=== PATIENT | female | born 1995 | race Caucasian/White ===

== ENCOUNTER 2022-09-05 11:11 | Inpatient (IN) ==
[2022-09-05] MEDS ORDERED: LIDOCAINE 1% LOCAL 20 ML VIAL INFIL PRN (12:00)
[2022-09-05] MEDS ORDERED: OXYTOCIN 30 UNITS/500 ML BAG IV PRN ×2 (12:00→16:14)
--- NOTE | 2022-09-05 12:09 | History & Physical Report ---
Date of Service September 05, 2022 Assessment & Plan (1) Normal labor: (2) Elevated blood pressure affecting , antepartum: Plan 26 yo G1 at 39 4/7 wga presents in labor Mild BPs noted, initial severe but mild repeat and denies s/s. Will get labs to r/o PET, pt is very uncomfortable as well Fetus cat 1 Labor - augment prn GBS neg epidural PRN History of Present Illness Chief Complaint: ctx Primary Care Provider: Arelis Nichole PA-C 26 yo G1 at 39 4/7 wga presents w/ ctx increasing in frequency and intensity. +FM; denies LOF, VB. Denies HUGHES, vision change, CP, SOB, RUQ/epigastric pain PNI: None Past diversified crops farmer Hx: G1 q35d cycles 12/2021 neg cotest denies hx STIs Allergies Allergy/AdvReac Type Severity Reaction Status Date / Time No Known Allergies Allergy Verified 09/05/22 11:24 Home Medications Medication Instructions Recorded Confirmed Type prenat.vits,kamille,moe-hbcy-juchv 1 tab PO DAILY 01/21/22 09/05/22 History breast pump #1 ea 07/02/22 09/03/22 Rx ferrous sulfate 325 mg (65 mg 325 mg PO DAILY 07/02/22 09/05/22 History iron) tablet psyllium 1 packet PO 1XD 09/05/22 09/05/22 History Patient History Medical History (Updated 09/05/22 @ 12:07 by Ibeth Nunes MD) Anxiety Depression with anxiety History of chicken pox Surgical History H/O wisdom tooth extraction S/P wisdom tooth extraction Status post surgery Dental Implants Family History Father Diabetes Hypertension Mother Anxiety Father Diabetes Kidney stone Mother Thyroid disease Denies family history of Ovarian cancer Breast cancer Colorectal cancer Social History (System 01/28/22 @ 10:53 by Joya Pal) Smoking Status: Never smoker Hx Alcohol Use: No Hx Substance Use: No Preferred Language: Dutch Communication Ability: Effective 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 Beliefs That Will Affect Care: None marital status: marital status details: Steve (28) [phone] Current Living Situation: Spouse Current Living Situation Comment: lives with spouse, dog current occupational status: employed 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 Other Information That Helps Us Care for You: No Feels Safe at Home: Yes Safety Concerns: Feels Safe At This Time Seatbelt Use: always Assistive Devices: None Physical Exam Genitourinary: OB Exam Abdomen: + vertex and + estimated weight (7-8) Manual OB Exam: + cervical dilation 3 cm, + cervical effacement and + station -2 OB Exam Monitor Tracing: + external FHT monitor used, + external uterine monitor used (q4-6) and + category I (130/mod/+accel/-decel) Results & Data Vital Signs (Past 12 Hours) Vital Signs Temp Pulse Resp BP 09/05/22 11:56 80 09/05/22 11:56 144/93 H 09/05/22 11:40 90 09/05/22 11:40 138/95 09/05/22 11:23 20 09/05/22 11:23 98.1 F 20 09/05/22 11:22 73 163/86 H Laboratory Results OB Labs: Blood Type O Positive 01/27/22 Antibody Screen NEGATIVE 01/27/22 Hemoglobin 9.9 g/dl (12.0-16.0) L 06/18/22 Hematocrit 29.4 % (34.1-44.9) L 06/18/22 Mean Corpuscular Volume 89.8 fL (80.0-100.0) 01/27/22 Platelet Count 183 K/uL (130-400) 01/27/22 Rubella IgG Antibody Immune (Immune) 01/27/22 Rapid Plasma Reagin Nonreactive (Nonreactive) 01/27/22 Hepatitis B Surface Antigen. NON-REACTIVE (NON-REACTIVE) 01/27/22 Hepatitis C Antibody (EIA) NON-REACTIVE (NON-REACTIVE) 01/27/22 HIV (1&2) Ag and Ab Confirmation NON-REACTIVE (NON-REACTIVE) 01/27/22 Glucose 1 Hour 50 gm Load 111 mg/dl (70-130) 06/18/22 OB Optional Labs: Chlamydia trachomatis RNA NOT DETECTED (NOT DETECTED) 01/27/22 Neisseria gonorrhoeae RNA NOT DETECTED (NOT DETECTED) 01/27/22 Labs Reviewed: Declines cf/sma/cfdna--mln Diagnostic Findings post plac Coding Level of Care Code None Diagnoses Normal labor O80; Z37.9 Elevated blood pressure affecting , antepartum O16.9
[2022-09-05] MEDS: LACTATED RINGER'S 1,000 ML IV PRN ×3 (12:19→18:57)
[2022-09-05 12:45] LABS: Hematocrit (blood only) 36.8 % (37.0-47.0); Hemoglobin 12.4 g/dl (12.0-16.0); Mean Corpuscular Hemoglobin 30.9 pg (25.0-34.0); Mean Corpuscular Hgb Conc 33.7 g/dL (32.0-36.0); Mean Corpuscular Volume 91.8 fL (80.0-100.0); Mean Platelet Volume 13.4 fL (9.4-12.4); Platelet Count 102 K/uL (130-400); RDW Coefficient of Variation 13.7 % (11.5-14.5); RDW Standard Deviation 46.7 fL (36.4-46.3); Red Blood Count 4.01 M/uL (4.20-5.40); White Blood Count 9.91 K/ul (4.8-10.8)
[2022-09-05] MEDS ORDERED: ePHEDrine sulfate 50 MG/ML AMP ONE (12:49)
[2022-09-05] MEDS ORDERED: fentaNYL 2MCG/ML ROPIVACAINE 1.25MG/ML 100 ML BAG EPI ONE (12:50)
[2022-09-05] MEDS ORDERED: LIDOCAINE 2%/EPINEPHRINE 1:200,000 20 ML PF ONE (12:50)
[2022-09-05] MEDS ORDERED: SODIUM CHLORIDE 0.9% PF INJ 10 ML VIAL ONE (12:50)
[2022-09-05] MEDS ORDERED: BUPIVACAINE 0.25% PF 30 ML VIAL ONE (12:50)
[2022-09-05] MEDS ORDERED: fentaNYL citrate PF 100 MCG/2 ML VIAL ONE (12:50)
[2022-09-05 12:57] LABS: Albumin Globulin Ratio 1.2 (0.9-2); Albumin Level 3.3 gm/dl (3.4-5.0); BUN Creatinine Ratio 18.3 (10-20); Bilirubin,Total 0.3 mg/dl (0.2-1.0); Calcium 8.4 mg/dl (8.6-10.3); Creatinine Clr Calc Pharmacy 164.4 ml/min; Est GFR (African American) 143.8 ml/min; Globulin 2.7 gm/dl (2.5-4.0); Potassium 4.4 mmol/L (3.5-5.1)
--- NOTE | 2022-09-05 13:26 | Anesthesiology Consultation ---
Date of Service September 05, 2022 Assessment & Plan Chart Review Chart Review: Acceptable Risk for Surgery, Patient NOT seen in Pre Admission Testing and Acceptable Risk for Labor Epidural Consults Requested none ASA ASA2 Proposed Anesthesia Anesthesia Type: Labor Epidural and CSE History Height/Weight Height: 5 ft 6 in Weight: 97.522 kg Allergies Allergy/AdvReac Type Severity Reaction Status Date / Time No Known Allergies Allergy Verified 09/05/22 11:24 Medications Home Medications Medication Instructions Recorded Confirmed Last Taken prenat.vits,kamille,iwc-lqzw-genda 1 tab PO DAILY 01/21/22 09/05/22 09/04/22 18:00 breast pump #1 ea 07/02/22 09/03/22 Unknown ferrous sulfate 325 mg (65 mg 325 mg PO DAILY 07/02/22 09/05/22 09/05/22 05:00 iron) tablet psyllium 1 packet PO 1XD 09/05/22 09/05/22 09/05/22 05:00 Active Medications Generic Name Dose Route Start Last Admin Trade Name Freq PRN Reason Stop Dose Admin Lactated Ringer's 1,000 mls @ 125 mls/hr 09/05/22 12:00 09/05/22 13:21 Lr IV 09/07/22 11:59 125 mls/hr .Q8H PRN Administration L&D Protocol Protocol Past Medical History Medical History Anxiety Depression with anxiety History of chicken pox Exercise / Class Metabolic Activity II 4-5 Yardwork/Stairs/Walk up hill Past Family History Family History Father Diabetes Hypertension Mother Anxiety Father Diabetes Kidney stone Mother Thyroid disease Denies family history of Ovarian cancer Breast cancer Colorectal cancer Past Surgical History Surgical History H/O wisdom tooth extraction S/P wisdom tooth extraction Status post surgery Dental Implants Past Anesthesia History No Hx of Anesthesia Complications and No Family Hx of Anesthesia Complications History of PONV No Hx of PONV and No Hx of Motion Sickness Social History Smoking Status: Never smoker Hx Alcohol Use: No Hx Substance Use: No Physical Exam Vital Signs Last Vital Signs Temp 36.8 C 09/05/22 13:16 Pulse 72 04/08/23 13:20 Resp 20 09/05/22 13:16 BP 140/90 09/05/22 13:16 Pulse Ox 97 09/05/22 13:20 Testing Laboratory Results 09/05/22 12:10 09/05/22 12:10
[2022-09-05 13:53] LABS: Creatinine Urine Random 116.5 mg/dl; Protein Creatinine Ratio Urine 2.1 (0-0.2); Total Protein Urine Random 244.8 mg/dl (0-11.9)
--- NOTE | 2022-09-05 14:22 | Communication Note ---
Date of Service: September 05, 2022 Multiple attempts @ epidural placement ; unable to enter epidural space 2ndary to bone; difficulty w/ delineation of vertebral interspaces. Back up physician ,Dr Foss called and will be coming in.
[2022-09-05] MEDS ORDERED: PROMETHAZINE HCL 25 MG in SODIUM CHLORIDE 0.9% 50 ML IV PRN (14:54)
[2022-09-05] MEDS ORDERED: ePHEDrine sulfate 50 MG/ML AMP IV PRN (14:54)
[2022-09-05] MEDS ORDERED: NALOXONE HCL 1 MG in SODIUM CHLORIDE 0.9% 1000ML 1,000 ML IV PRN (14:54)
[2022-09-05] MEDS ORDERED: fentaNYL 2MCG/ML ROPIVACAINE 1.25MG/ML 100 ML BAG EPI PRN (14:54)
[2022-09-05] MEDS ORDERED: NALOXONE HCL 0.4 MG/1 ML VIAL/CARP IV PRN (14:54)
[2022-09-05] MEDS ORDERED: NALBUPHINE HCL INJ 10 MG/ML AMP IV PRN (14:54)
[2022-09-05] MEDS ORDERED: ONDANSETRON INJ 2 MG/ML 2 ML VIAL IV PRN (14:54)
[2022-09-05] MEDS ORDERED: diphenhydrAMINE 50 MG/ML VIAL IV PRN (14:54)
--- NOTE | 2022-09-05 16:14 | Labor Progress Brief Note ---
Date of Service September 05, 2022 Subjective Comfortable w/ epidural Assessment & Plan (1) Normal labor: (2) Elevated blood pressure affecting , antepartum: Plan 26 yo G1 at 39 4/7 wga presents in labor VSS - BPs initially remained mild range but then improved after epidural. Labs showed plt 102, LFTs and cr wnl, UPC 2. BPs did not remain elevated >4hrs apart so has not met criteria for PIH at this point but will need to monitor closely if begin to elevate again as would meet criteria then. Pt aware Fetus cat 1 Labor - some progress noted, now s/p arom. Will see if helps, pit if needed GBS neg epidural in place Admission and Anticipated Discharge Date Admission Date: September 05, 2022 Physical Exam Genitourinary: Manual OB Exam: + cervical dilation 4 cm, + cervical effacement, + station -2 and + amniotic fluid (arom) clear OB Exam Monitor Tracing: + external FHT monitor used, + external uterine monitor used (irreg, sometimes q2-3, sometimes q9) and + category I (130/mod/+accel/-decel) Results & Data Vital Signs (Past 12 Hours) Vital Signs Temp Pulse Resp BP Pulse Ox 09/05/22 16:10 96 09/05/22 16:10 97 H 09/05/22 16:05 96 09/05/22 16:05 95 H 09/05/22 16:05 105/62 09/05/22 16:00 93 09/05/22 16:00 71 09/05/22 15:00 98.1 F 09/05/22 16:00 20 09/05/22 16:00 20 09/05/22 15:55 94 09/05/22 15:55 65 09/05/22 15:52 66 09/05/22 15:52 104/56 L 09/05/22 15:50 94 09/05/22 15:50 72 09/05/22 15:45 94 09/05/22 15:45 81 09/05/22 15:46 68 09/05/22 15:46 118/67 09/05/22 15:40 97 09/05/22 15:40 124 H 09/05/22 15:35 89 L 09/05/22 15:35 74 09/05/22 15:35 122/73 09/05/22 15:32 70 09/05/22 15:32 77/44 L 09/05/22 15:30 98 09/05/22 15:30 119 H 09/05/22 15:25 93 09/05/22 15:25 93 H 09/05/22 15:20 94 09/05/22 15:20 107 H 09/05/22 15:20 88 09/05/22 15:20 132/82 09/05/22 15:15 96 09/05/22 15:15 76 09/05/22 15:16 81 09/05/22 15:16 127/76 09/05/22 15:10 94 09/05/22 15:10 70 09/05/22 15:10 127/70 09/05/22 15:05 93 09/05/22 15:05 81 09/05/22 15:05 135/87 09/05/22 15:00 93 09/05/22 15:00 86 09/05/22 15:00 130/82 09/05/22 15:00 20 09/05/22 15:00 20 09/05/22 14:58 93 H 09/05/22 14:58 129/82 09/05/22 14:55 93 09/05/22 14:55 103 H 09/05/22 14:56 93 H 09/05/22 14:56 135/85 09/05/22 14:54 75 09/05/22 14:54 123/72 09/05/22 14:52 93 H 09/05/22 14:52 138/82 09/05/22 14:50 95 09/05/22 14:50 92 H 09/05/22 14:50 88 09/05/22 14:50 114/65 09/05/22 14:48 20 09/05/22 14:48 20 09/05/22 14:48 83 09/05/22 14:48 126/71 09/05/22 14:45 96 09/05/22 14:45 90 09/05/22 14:46 88 09/05/22 14:46 135/73 09/05/22 14:43 86 09/05/22 14:43 131/81 09/05/22 14:42 85 09/05/22 14:42 132/83 09/05/22 14:40 94 09/05/22 14:40 85 09/05/22 14:35 97 09/05/22 14:35 95 H 09/05/22 14:30 96 09/05/22 14:30 92 H 09/05/22 14:28 83 09/05/22 14:28 137/87 09/05/22 14:25 97 09/05/22 14:25 86 09/05/22 14:20 96 09/05/22 14:20 86 09/05/22 14:15 96 09/05/22 14:15 87 09/05/22 14:10 95 09/05/22 14:10 103 H 09/05/22 14:05 96 09/05/22 14:05 89 09/05/22 14:00 93 09/05/22 14:00 91 H 09/05/22 13:55 93 09/05/22 13:55 86 09/05/22 13:54 94 09/05/22 13:54 83 09/05/22 13:50 96 09/05/22 13:50 95 H 09/05/22 13:45 96 09/05/22 13:45 83 09/05/22 13:40 96 09/05/22 13:40 91 H 09/05/22 13:35 96 09/05/22 13:35 94 H 09/05/22 13:30 95 09/05/22 13:30 73 09/05/22 13:25 97 09/05/22 13:25 83 09/05/22 13:20 97 09/05/22 13:20 72 09/05/22 13:16 20 09/05/22 13:16 98.2 F 20 09/05/22 13:15 97 09/05/22 13:15 87 09/05/22 13:16 90 09/05/22 13:16 140/90 09/05/22 12:25 88 09/05/22 12:25 146/90 H 09/05/22 12:15 100 H 09/05/22 12:15 157/100 H 09/05/22 12:05 104 H 09/05/22 12:05 144/93 H 09/05/22 11:56 80 09/05/22 11:56 144/93 H 09/05/22 11:40 90 09/05/22 11:40 138/95 09/05/22 11:23 20 09/05/22 11:23 98.1 F 20 09/05/22 11:22 73 163/86 H Coding Level of Care Code None Diagnoses Normal labor O80; Z37.9 Elevated blood pressure affecting , antepartum O16.9
--- NOTE | 2022-09-05 18:43 | Labor Progress Brief Note ---
Date of Service September 05, 2022 Subjective Comfortable w/ epidural Assessment & Plan (1) Normal labor: (2) Elevated blood pressure affecting , antepartum: Plan 26 yo G1 at 39 4/7 wga presents in labor BPs - had a mild range that was taken during repositioning, still normontensive at this point. Continue to monitor Fetus cat 1 Labor - progress noted, continue expectant management. pit prn GBS neg epidural in place Admission and Anticipated Discharge Date Admission Date: September 05, 2022 Physical Exam Genitourinary: Manual OB Exam: + cervical dilation (4-5), + cervical effacement 70% and + station -2 OB Exam Monitor Tracing: + external FHT monitor used, + external uterine monitor used (q3-4) and + category I (130/mod/+accel/-decel) Results & Data Vital Signs (Past 12 Hours) Vital Signs Temp Pulse Resp BP Pulse Ox 09/05/22 18:37 77 09/05/22 18:37 139/85 09/05/22 18:35 97 09/05/22 18:35 72 09/05/22 18:30 20 09/05/22 18:30 20 09/05/22 18:30 96 09/05/22 18:30 81 09/05/22 18:25 97 09/05/22 18:25 71 09/05/22 18:23 80 09/05/22 18:23 152/77 H 09/05/22 18:21 86 09/05/22 18:21 154/120 H 09/05/22 18:20 98 09/05/22 18:20 93 H 09/05/22 18:16 88 L 09/05/22 18:16 80 09/05/22 18:15 93 09/05/22 18:15 73 09/05/22 18:10 98 09/05/22 18:10 66 09/05/22 18:05 98 09/05/22 18:05 74 09/05/22 18:06 73 09/05/22 18:06 136/78 09/05/22 17:00 98.1 F 09/05/22 18:00 98 09/05/22 18:00 68 09/05/22 18:00 20 09/05/22 18:00 20 09/05/22 17:30 20 09/05/22 17:30 20 09/05/22 17:55 97 09/05/22 17:55 69 09/05/22 17:50 97 09/05/22 17:50 75 09/05/22 17:50 126/77 09/05/22 17:45 97 09/05/22 17:45 70 09/05/22 17:40 97 09/05/22 17:40 71 09/05/22 17:37 75 09/05/22 17:37 130/76 09/05/22 17:35 97 09/05/22 17:35 69 09/05/22 17:30 96 09/05/22 17:30 77 09/05/22 17:25 96 09/05/22 17:25 69 09/05/22 17:20 94 09/05/22 17:20 69 09/05/22 17:20 124/69 09/05/22 17:15 94 09/05/22 17:15 73 09/05/22 17:10 94 09/05/22 17:10 72 09/05/22 17:05 96 09/05/22 17:05 73 09/05/22 17:06 72 09/05/22 17:06 122/66 09/05/22 17:00 18 09/05/22 17:00 18 09/05/22 17:00 95 09/05/22 17:00 69 09/05/22 16:55 95 09/05/22 16:55 70 09/05/22 16:50 97 09/05/22 16:50 78 09/05/22 16:50 118/66 09/05/22 16:45 95 09/05/22 16:45 69 09/05/22 16:40 95 09/05/22 16:40 72 09/05/22 16:35 71 09/05/22 16:35 113/61 09/05/22 16:35 96 09/05/22 16:35 76 09/05/22 16:30 97 09/05/22 16:30 80 09/05/22 16:30 20 09/05/22 16:30 20 09/05/22 16:25 96 09/05/22 16:25 73 09/05/22 16:21 82 09/05/22 16:21 105/58 L 09/05/22 16:20 95 09/05/22 16:20 78 09/05/22 16:15 95 09/05/22 16:15 80 09/05/22 16:10 96 09/05/22 16:10 97 H 09/05/22 16:05 96 09/05/22 16:05 95 H 09/05/22 16:05 105/62 09/05/22 16:00 93 09/05/22 16:00 71 09/05/22 15:00 98.1 F 09/05/22 16:00 20 09/05/22 16:00 20 09/05/22 15:55 94 09/05/22 15:55 65 09/05/22 15:52 66 09/05/22 15:52 104/56 L 09/05/22 15:50 94 09/05/22 15:50 72 09/05/22 15:45 94 09/05/22 15:45 81 09/05/22 15:46 68 09/05/22 15:46 118/67 09/05/22 15:40 97 09/05/22 15:40 124 H 09/05/22 15:35 89 L 09/05/22 15:35 74 09/05/22 15:35 122/73 09/05/22 15:32 70 09/05/22 15:32 77/44 L 09/05/22 15:30 98 09/05/22 15:30 119 H 09/05/22 15:25 93 09/05/22 15:25 93 H 09/05/22 15:20 94 09/05/22 15:20 107 H 09/05/22 15:20 88 09/05/22 15:20 132/82 09/05/22 15:15 96 09/05/22 15:15 76 09/05/22 15:16 81 09/05/22 15:16 127/76 09/05/22 15:10 94 09/05/22 15:10 70 09/05/22 15:10 127/70 09/05/22 15:05 93 09/05/22 15:05 81 09/05/22 15:05 135/87 09/05/22 15:00 93 09/05/22 15:00 86 09/05/22 15:00 130/82 09/05/22 15:00 20 09/05/22 15:00 20 09/05/22 14:58 93 H 09/05/22 14:58 129/82 09/05/22 14:55 93 09/05/22 14:55 103 H 09/05/22 14:56 93 H 09/05/22 14:56 135/85 09/05/22 14:54 75 09/05/22 14:54 123/72 09/05/22 14:52 93 H 09/05/22 14:52 138/82 09/05/22 14:50 95 09/05/22 14:50 92 H 09/05/22 14:50 88 09/05/22 14:50 114/65 09/05/22 14:48 20 09/05/22 14:48 20 09/05/22 14:48 83 09/05/22 14:48 126/71 09/05/22 14:45 96 09/05/22 14:45 90 09/05/22 14:46 88 09/05/22 14:46 135/73 09/05/22 14:43 86 09/05/22 14:43 131/81 09/05/22 14:42 85 09/05/22 14:42 132/83 09/05/22 14:40 94 09/05/22 14:40 85 09/05/22 14:35 97 09/05/22 14:35 95 H 09/05/22 14:30 96 09/05/22 14:30 92 H 09/05/22 14:28 83 09/05/22 14:28 137/87 09/05/22 14:25 97 09/05/22 14:25 86 09/05/22 14:20 96 09/05/22 14:20 86 09/05/22 14:15 96 09/05/22 14:15 87 09/05/22 14:10 95 09/05/22 14:10 103 H 09/05/22 14:05 96 09/05/22 14:05 89 09/05/22 14:00 93 09/05/22 14:00 91 H 09/05/22 13:55 93 09/05/22 13:55 86 09/05/22 13:54 94 09/05/22 13:54 83 09/05/22 13:50 96 09/05/22 13:50 95 H 09/05/22 13:45 96 09/05/22 13:45 83 09/05/22 13:40 96 09/05/22 13:40 91 H 09/05/22 13:35 96 09/05/22 13:35 94 H 09/05/22 13:30 95 09/05/22 13:30 73 09/05/22 13:25 97 09/05/22 13:25 83 09/05/22 13:20 97 09/05/22 13:20 72 09/05/22 13:16 20 09/05/22 13:16 98.2 F 20 09/05/22 13:15 97 09/05/22 13:15 87 09/05/22 13:16 90 09/05/22 13:16 140/90 09/05/22 12:25 88 09/05/22 12:25 146/90 H 09/05/22 12:15 100 H 09/05/22 12:15 157/100 H 09/05/22 12:05 104 H 09/05/22 12:05 144/93 H 09/05/22 11:56 80 09/05/22 11:56 144/93 H 09/05/22 11:40 90 09/05/22 11:40 138/95 09/05/22 11:23 20 09/05/22 11:23 98.1 F 20 09/05/22 11:22 73 163/86 H Coding Level of Care Code None Diagnoses Normal labor O80; Z37.9 Elevated blood pressure affecting , antepartum O16.9
[2022-09-05] MEDS ORDERED: NURSING L&D Epidural Breakthrough Pain Update ONE (22:01)
--- NOTE | 2022-09-06 03:36 | Delivery Summary ---
Vaginal Delivery Summary Date of Service September 06, 2022 Vaginal Delivery Summary and 2nd Degree LAC PREOPERATIVE DIAGNOSIS: 1. Single intrauterine at 39 5/7 wga 2. Labor 3. Elevated BPs w/o dx of pre-eclampsia POSTOPERATIVE DIAGNOSIS: 1. Single intrauterine at 39 5/7 wga 2. Labor 3. Elevated BPs w/o dx of pre-eclampsia 4. Delivered PROCEDURE: 1. Normal spontaneous vaginal delivery. SURGEON: Ibeth Nunes MD ANESTHESIA: Epidural. ESTIMATED BLOOD LOSS: 500 mL (majority of EBL from tear) FLUIDS: Continuous LR. URINE OUTPUT: None. COMPLICATIONS: None. CONDITION: Stable. INDICATIONS: 26 yo G1 at 39 5/7 wga presented this morning with contractions increasing in frequency and intensity. She was found to be 3cm and admitted in labor. Initial Bps were elevated so pre-eclampsia labs were drawn that were normal except a UPC of 2. Platelets were low at 102 however BPs did normalize and so she did not meet criteria for pre-eclampsia. She did receive an epidural for pain control and underwent arom. Pitocin was started to aid in regulation o f contractions and she progressed to complete and desired to push. FINDINGS: A viable female , weight pending with Apgars of 8 and 9 at 1 and 5 minutes respectively. SPECIMEN: Cord blood OPERATIVE REPORT: The patient progressed to 10 cm, 100% effaced and +2 station, pushed over intact perineum with anesthesia to deliver a viable female , weight and Apgars as above. Head of delivered in DAINA position. No nuchal cord was present. Body and shoulders were delivered without difficulty. was delivered to maternal abdomen and nursing staff. Delayed cord clamping was performed for 60 seconds. Cord was clamped and cut. Cord blood was obtained. Placenta delivered spontaneously intact with 3-vessel cord. IV oxytocin and fundal massage were given for excellent hemostasis. Vagina, cervix, perineum, and placenta were inspected. A second degree and significant left sulcal laceration were repaired in the usual fashion using 3-0 vicryl. Additional aspects of these tears were noted to be bleeding due to friability of the tissue and required additional figure of eight stitches. Bilateral vaginal tears were also noted and made hemostatic using 4-0 vicryl. A left labial laceration was made hemostatic using 4-0 vicryl. There was then excellent hemostasis. Sponge and needle counts correct x2. No sponges were left behind. Mother and stable in immediate period. [facility] Vaginal Delivery Charge Vaginal Delivery Codes: 31841 global code for the antepartum, delivery, and post- Delivery Type Details: and 2nd Degree LAC
[2022-09-06] MEDS ORDERED: HYDROCORTISONE ACETATE 25 MG SUPP PR PRN (03:42)
[2022-09-06] MEDS ORDERED: bisacodyL 10 MG SUPP PR PRN (03:42)
[2022-09-06] MEDS ORDERED: BENZOCAINE 20% AER SPR 82.5 GM CAN EXT PRN (03:42)
[2022-09-06] MEDS ORDERED: DIPHTHERIA/TETANUS/PERTUSSIS 0.5mL SYR/VIAL (Age 7+yrs) IM ONE (03:42)
[2022-09-06] MEDS ORDERED: OXYTOCIN 30 UNITS/500 ML BAG IV PRN (03:42)
[2022-09-06 04:00] LABS: Hematocrit (blood only) 32.1 % (37.0-47.0); Hemoglobin 11.1 g/dl (12.0-16.0); Mean Corpuscular Hemoglobin 31.3 pg (25.0-34.0); Mean Corpuscular Hgb Conc 34.6 g/dL (32.0-36.0); Mean Corpuscular Volume 90.4 fL (80.0-100.0); Mean Platelet Volume 12.9 fL (9.4-12.4); Platelet Count 101 K/uL (130-400); RDW Coefficient of Variation 13.8 % (11.5-14.5); RDW Standard Deviation 45.8 fL (36.4-46.3); Red Blood Count 3.55 M/uL (4.20-5.40); White Blood Count 13.76 K/ul (4.8-10.8)
[2022-09-06] MEDS: ACETAMINOPHEN 325 MG TAB PO PRN ×2 (05:02→20:37)
--- NOTE | 2022-09-06 06:55 | Communication Note ---
Date of Service: September 06, 2022 CBC reviewed and plt stable. BPs normal range, pt feeling well. Meets criteria for pet w/o sf but not sf at this time, will continue to monitor.
[2022-09-06] MEDS: PRENATAL VITAMIN 1 TAB PO SCH (09:12)
[2022-09-06] MEDS: DOCUSATE SODIUM 100 MG CAP PO SCH ×2 (09:12→20:37)
[2022-09-06] MEDS: IBUPROFEN 600 MG TAB PO PRN ×2 (09:12→18:58)
[2022-09-06] MEDS: FERROUS SULFATE 325 MG TAB PO SCH (09:12)
--- NOTE | 2022-09-06 09:13 | Anesthesia Procedure Note ---
Date of Service September 06, 2022 Anesthesia Post Epidural Note Vital Signs Vital Signs: Temp Pulse Resp BP Pulse Ox 36.9 C 100 H 20 136/78 95 09/06/22 06:15 09/06/22 06:15 09/06/22 06:15 09/06/22 06:15 09/06/22 03:27 Pain Intensity Bilateral Abdomen: Pain Intensity: 1 Notes Mental Status: alert / awake / arousable Nausea / Vomiting: adequately controlled Pain: adequately controlled Airway Patency, RR, SpO2: stable & adequate BP & HR: stable & adequate Hydration State: stable & adequate Neuraxial Anesthesia: was administered and sensory block is resolving Anesthetic Complications: no major complications apparent Epidural: Removed without complications and With tip intact
--- NOTE | 2022-09-07 05:46 | Obstetrical Progress Note ---
Date of Service September 07, 2022 Assessment & Plan (1) Elevated blood pressure affecting , antepartum: Plan: Bryanna is a 26 y/o female who is PPD #1 following delivery at 39 5/7 weeks. -Meeting all milestones -BP slightly elevated at 141/92, will continue to monitor for additional day -O+/GBS negative/Rubella immune -Follow up in 1 week for BP check and 6 weeks for appointment -Continue routine care -Remove queen for voiding trial (2) Normal labor: (3) Supervision of normal first : Admission and Anticipated Discharge Date Admission Date: September 05, 2022 Supervising Physician Co-Signing Physician Notes Resident Physician Supervision Note: I interviewed and examined the patient. Discussed with Dr. Astorga and agree with findings and plan as documented in the note. Any exceptions or clarifications are listed here: PP1 s/p . Queen placed last evening due to large volume on bladder scan after feeling like not emptying, has felt better with it. Meeting all other milestones. Denies s/s PET. Had severe BP shortly after placement of queen that likely related to severe pain and anxiety, these did settle so I don't think truly elevated related to PET. VSS normal to mild range BPs, exam benign and wnl. Plan to remove queen this am and DTV, monitor BPs Documented By: Ibeth Nunes MD Subjective Bryanna is a 26 y/o female who is PPD #1 following delivery at 39 5/7 weeks, she is considered preeclamptic without severe features. She reports feeling well overall this morning. Some abdominal cramping but pain well managed on analgesics. Has queen catheter in place which is draining urine- notes that "pressure" has decreased significantly since placement of catheter. Tolerating meals overnight and able to ambulate some. Has some persistent lochia with some improvement this morning. Currently breast feeding. Denies headache or blurry vision. Review of Systems Constitutional: no fever, no chills and no sweats Respiratory: no cough, no dyspnea and no wheezing Cardiovascular: no chest pain, no palpitations and no calf pain Genitourinary: no dysuria Neurologic: no headache(s) Physical Exam Constitutional: WD/WN, vitals as above no acute distress Respiratory: no respiratory distress Auscultation: lungs clear to auscultation bilaterally; no rales, no rhonchi and no wheezes Cardiovascular: RRR, no murmur, no edema Extremities: no calf tenderness and no edema Negative Donnie's sign bilaterally. Gastrointestinal (Abdomen): Inspection/Auscultation: normal bowel sounds Genitourinary: Uterine fundus firm, palpable below the umbilicus. Results & Data Vital Signs (Past 12 Hours) Vital Signs Temp Pulse Resp BP Pulse Ox O2 Del Method 09/06/22 23:30 Room Air 09/06/22 23:30 37 C 90 18 141/92 H 97 Room Air 09/06/22 22:00 128/74 09/06/22 20:45 165/105 H 09/06/22 19:45 36.9 C 102 H 20 169/97 H 100 Room Air 09/06/22 21:10 143/84 H Resident Activity Tracking Resident Involvement: Resident Care Provided Care Provided: OB Delivery
[2022-09-07 07:33] LABS: Hematocrit (blood only) 27.2 % (37.0-47.0); Hemoglobin 9.3 g/dl (12.0-16.0)
[2022-09-07] MEDS: FERROUS SULFATE 325 MG TAB PO SCH (08:39)
[2022-09-07] MEDS: DOCUSATE SODIUM 100 MG CAP PO SCH ×2 (08:39→20:26)
[2022-09-07] MEDS: PRENATAL VITAMIN 1 TAB PO SCH (08:40)
[2022-09-07] MEDS: IBUPROFEN 600 MG TAB PO PRN ×4 (08:42→21:48)
[2022-09-07] MEDS ORDERED: bisacodyL 5 MG TABEC PO SCH (20:00)
[2022-09-08] MEDS: IBUPROFEN 600 MG TAB PO PRN ×2 (05:43→17:08)
--- NOTE | 2022-09-08 06:34 | Obstetrical Progress Note ---
Date of Service September 08, 2022 Assessment & Plan (1) Elevated blood pressure affecting , antepartum: Plan: Bryanna is a 26 y/o female who is PPD #2 following delivery at 39 5/7 weeks. -Meeting all milestones -BP of 131/86, denies headache/visual changes -O+/GBS negative/Rubella immune -Follow up in 6 weeks for appointment -Continue routine care -Provided discharge instructions, planning to d/c later today (2) Normal labor: (3) Supervision of normal first : Admission and Anticipated Discharge Date Admission Date: September 05, 2022 Supervising Physician Co-Signing Physician Notes Resident Physician Supervision Note: I was present with Dr. Garvey during the history and exam. I discussed the case with the resident and agree with the findings and plan as documented in the note. Any exceptions or clarifications are listed here: stable doing well. eating, voiding, ambulating. . no king or visual change. abd soft ff 2down nt. ext nt calves. +2 pedal edema. ppd#2 preeclampsia, will dc home, instructions reviewed. f/u one wk bp check (given this am bp) and 6wk pp. discussed parameters to call. rh pos, ri, . Documented By: Cary Yanez MD, FACOG Subjective Bryanna is a 26 y/o female who is PPD #2 following delivery at 39 5/7 weeks, she is considered preeclamptic without severe features. She reports feeling well overall this morning. Some abdominal cramping but pain well managed on analgesics. Had queen catheter removed yesterday and has been able to empty her bladder without issue. Tolerating meals overnight and able to ambulate some. Has some persistent lochia with some improvement this morning. Currently breast feeding. Denies headache or blurry vision. Review of Systems 2 Constitutional: no fever, no chills and no sweats Respiratory: no cough, no dyspnea and no wheezing Cardiovascular: no chest pain, no palpitations and no calf pain Genitourinary: no dysuria Neurologic: no headache(s) Physical Exam Constitutional: WD/WN, vitals as above no acute distress Respiratory: no respiratory distress Auscultation: lungs clear to auscultation bilaterally; no rales, no rhonchi and no wheezes Cardiovascular: RRR, no murmur, no edema Extremities: no calf tenderness and no edema Gastrointestinal (Abdomen): Inspection/Auscultation: normal bowel sounds Genitourinary: Uterine fundus palpable below umbilicus Results & Data Vital Signs (Past 12 Hours) Vital Signs Temp Pulse Resp BP Pulse Ox O2 Del Method 09/08/22 00:00 36.7 C 84 18 131/86 97 Room Air 09/07/22 20:45 36.8 C 97 H 18 141/82 H 97 Room Air Resident Activity Tracking Resident Involvement: Resident Care Provided Care Provided: OB Delivery
[2022-09-08] MEDS: DOCUSATE SODIUM 100 MG CAP PO SCH (08:54)
[2022-09-08] MEDS: FERROUS SULFATE 325 MG TAB PO SCH (08:54)
[2022-09-08] MEDS: PRENATAL VITAMIN 1 TAB PO SCH (08:54)
[2022-09-08] MEDS: ACETAMINOPHEN 325 MG TAB PO PRN (08:57)
== END 2022-09-08 20:25 | disposition home or self-care (01) | DRG 807 ==
LOC: OPB 11:11 → 4S1 11:15 → 4E2 09-06 06:02